=== PATIENT | female | born 1945 | race Caucasian/White ===

== ENCOUNTER 2020-05-30 14:39 | Emergency (ER) | payer MEDICARE, BC ==
[2020-05-30] MEDS ORDERED: SODIUM CHLORIDE 0.9% 1,000 ML IV STA (15:27)
[2020-05-30 15:54] LABS: Basophils # (A) 0.1 k/uL (0-0.2); Basophils % (A) 0 %; Eosinophils # (A) 0.2 k/uL (0-0.7); Eosinophils % (A) 1 %; HCT 40.1 % (34.0-46.0); HGB 13.3 gm/dL (11.4-16.0); Lymphocytes # (A) 1.2 k/uL (1.0-4.8); Lymphocytes % (A) 7 %; MCH 30.3 pg (25.0-35.0); MCHC 33.1 g/dL (31.0-37.0); MCV 91.6 fL (80.0-100.0); Mean Platelet Volume 8.5; Monocytes # (A) 1.1 k/uL (0-1.0); Monocytes % (A) 6 %; Neutrophils # (A) 14.8 k/uL (1.3-7.7); Neutrophils % (A) 83 %; Platelet Count 261 k/uL (150-450); RBC 4.37 m/uL (3.80-5.40); RDW 12.9 % (11.5-15.5); WBC 17.9 k/uL (3.8-10.6)
[2020-05-30 16:10] LABS: Albumin 3.7 g/dL (3.5-5.0); Calcium 9.2 mg/dL (8.4-10.2); Potassium 4.1 mmol/L (3.5-5.1); Total Bilirubin 0.8 mg/dL (0.2-1.3); Total Protein 6.3 g/dL (6.3-8.2)
--- NOTE | 2020-05-30 17:00 | ED ---
ENT HPI - General Chief complaint: Dental/Oral Stated complaint: Fever, body aches, Tooth pain Time Seen by Provider: 05/30/20 15:07 Source: patient Mode of arrival: ambulatory Limitations: no limitations - History of Present Illness Initial comments: Patient is a 75-year-old female presenting to the emergency room with chief complaint of fever, body aches a dental pain. Patient states approximately 5 days ago she developed right lower jaw pain that was initially diagnosed with a dental abscess about 5 days ago. Patient states she was started on Augmentin. Patient taking Augmentin for the past 3 days. Patient reports she continues to have a fever and she has been taking [id number] antipyretics with some success. Patient reports she has not developed body aches but no nausea or vomiting. She reports there is some numbness on the right side of the lip. Denies one sided facial droop or changes to her speech. Daughter is also prese nt in the room to confirm this. She denies one-sided weakness or paresthesias. States she attempted to see the dentist but will not do it until she covid testing. - Related Data Allergies Allergy/AdvReac Type Severity Reaction Status Date / Time levofloxacin [From Levaquin] Allergy Unknown Verified 05/30/20 14:51 simvastatin Allergy Swelling Verified 05/30/20 14:51 Review of Systems ROS Statement: Those systems with pertinent positive or pertinent negative responses have been documented in the HPI. ROS Other: All systems not noted in ROS Statement are negative. Past Medical History Past Medical History: GERD/Reflux, Hyperlipidemia, Hypertension History of Any Multi-Drug Resistant Organisms: None Reported Past Surgical History: Hysterectomy, Orthopedic Surgery, Tonsillectomy, Tubal Ligation Past Psychological History: No Psychological Hx Reported Smoking Status: Never smoker Past Alcohol Use History: None Reported Past Drug Use History: None Reported General Exam Limitations: no limitations General appearance: alert, in no apparent distress Head exam: Present: atraumatic, normocephalic, normal inspection Eye exam: Present: normal appearance, PERRL, EOMI Pupils: Present: normal accommodation ENT exam: Present: normal exam, mucous membranes moist, TM's normal bilaterally, normal external ear exam. Absent: normal oropharynx (No signs of a dental abscess. No tenderness on the floor the mouth. No signs of Rasta's angina. No submandibular erythema, edema or tenderness.) Neck exam: Present: normal inspection, full ROM. Absent: lymphadenopathy (No lymphadenopathy) Respiratory exam: Present: normal lung sounds bilaterally. Absent: respiratory distress, wheezes Cardiovascular Exam: Present: regular rate, normal rhythm, normal heart sounds Extremities exam: Present: normal inspection, full ROM, normal capillary refill. Absent: tenderness Back exam: Present: normal inspection, full ROM. Absent: tenderness Neurological exam: Present: alert, oriented X3, CN II-XII intact, normal gait Psychiatric exam: Present: normal affect, normal mood. Absent: depressed, agitated Skin exam: Present: warm, dry, intact, normal color. Absent: rash Course Vital Signs 05/30/20 05/30/20 14:44 17:05 Temperature 97.8 F 98.1 F Pulse Rate 87 78 Respiratory 18 16 Rate Blood Pressure 92/54 113/61 O2 Sat by Pulse 98 95 Oximetry Medical Decision Making - Medical Decision Making Patient is a 75-year-old feel presenting to the emergency department with a chief complaint of a dental infection. On physical examination, no signs of dental abscess, Rasta's angina or any cutaneous infections of the right cheek. There is some tenderness near tooth #30 and 31. Again no signs of any oral lesi ons at this time. Patient is not febrile in the emergency department. Vitals are stable. CBC reveals leukocytosis at 17.9. Lactic within normal limits. CMP is unremarkable. Blood culture pending. CT reveals no signs of and infections in the oral cavity. The CT also revealed some left cervical nodes and some right upper lobe nodularity. Patient was advised to follow with the primary care regarding this. Patient still has 7 days left of the Augmentin. Advised the patient to continue taking the medication. The swelling has decreased ever since she started the medication according to the patient. The only concern was the fever, although she is afebrile in the ED course. Strict return parameters were thoroughly discussed with patient was understanding and agreeable. Case discussed with physician. - Lab Data Result diagrams: 05/30/20 15:39 05/30/20 15:41 Lab Results 05/30/20 05/30/20 05/30/20 Range/Units 15:39 15:39 15:41 WBC 17.9 H (3.8-10.6) k/uL RBC 4.37 (3.80-5.40) m/uL Hgb 13.3 (11.4-16.0) gm/dL Hct 40.1 (34.0-46.0) % MCV 91.6 (80.0-100.0) fL MCH 30.3 (25.0-35.0) pg MCHC 33.1 (31.0-37.0) g/dL RDW 12.9 (11.5-15.5) % Plt Count 261 (150-450) k/uL Neutrophils % 83 % Lymphocytes % 7 % Monocytes % 6 % Eosinophils % 1 % Basophils % 0 % Neutrophils # 14.8 H (1.3-7.7) k/uL Lymphocytes # 1.2 (1.0-4.8) k/uL Monocytes # 1.1 H (0-1.0) k/uL Eosinophils # 0.2 (0-0.7) k/uL Basophils # 0.1 (0-0.2) k/uL Sodium 136 L (137-145) mmol/L Potassium 4.1 (3.5-5.1) mmol/L Chloride 100 (98-107) mmol/L Carbon Dioxide 26 (22-30) mmol/L Anion Gap 10 mmol/L BUN 39 H (7-17) mg/dL Creatinine 1.00 (0.52-1.04) mg/dL Est GFR (CKD-EPI)AfAm 64 (>60 ml/min/1.73 sqM) Est GFR (CKD-EPI)NonAf 56 (>60 ml/min/1.73 sqM) Glucose 147 H (74-99) mg/dL Plasma Lactic Acid Jesus 1.6 (0.7-2.0) mmol/L Calcium 9.2 (8.4-10.2) mg/dL Total Bilirubin 0.8 (0.2-1.3) mg/dL AST 130 H (14-36) U/L ALT 61 H (4-34) U/L Alkaline Phosphatase 111 (38-126) U/L Total Protein 6.3 (6.3-8.2) g/dL Albumin 3.7 (3.5-5.0) g/dL Disposition Clinical Impression: Pain, dental Disposition: HOME SELF-CARE Condition: Stable Instructions (If sedation given, give patient instructions): Toothache (ED) Additional Instructions: Take prescribed medication as directed. Continue taking Augmentin. Follow with the dentist. Return to emergency department if symptoms worsen. Is patient prescribed a controlled substance at d/c from ED?: No Referrals: Misha Anne MD [Primary Care Provider] - 1-2 days Time of Disposition: 17:42
[2020-05-30 17:06] VITALS: BP 113/61; PULSE 78; RESP 16; TEMP 98.1
--- NOTE | 2020-05-30 17:08 | CT ---
EXAMINATION TYPE: CT soft tissue neck w con DATE OF EXAM: 05/30/2020 COMPARISON: None HISTORY: 75-year-old female Right sided jaw swelling and pain. TECHNIQUE: Contiguous axial scanning of the soft tissues of the neck performed with IV Contrast, martine ent injected with 80 mL of Isovue 300. Coronal/sagittal reconstructions performed. CT DLP: 210.3 mGycm Automated exposure control for dose reduction was used. FINDINGS: Hypoplastic V4 segment right vertebral artery. Otherwise, visualized intracranial structures, orbits and globes, paranasal sinuses, and mastoid air cells appear clear. Leftward nasal septal deviation. Nasopharynx is clear. Limited assessment of the oral cavity due to extensive dental amalgam artifact. Oropharynx appears clear. Glottic and subglottic structures as well as the tracheal column appear clear. Scattered 6 mm and smaller nodularity right upper lobe. Minimal emphysematous change. Epiglottis and prevertebral soft tissues are satisfactory. Prominent 1.1 cm somewhat irregular appearing lymph node lower left cervical region, axial image 33 a nd coronal image 46. Thyroid, submandibular, and parotid glands appear satisfactory. Bones: Prominent central disc protrusion at C4-C5 minimally narrowing the spinal canal focally abutti ng and flattening the ventral cord, reference sagittal image 43. Moderate spondylotic change mid to l ower cervical spine. Prominent arachnoid granulation along the posterior occiput. IMPRESSION: 1. A BORDERLINE ENLARGED IRREGULAR APPEARING 1.1 CM LOWER LEFT CERVICAL LYMPH NODE. FINDING IS NONSPE CIFIC. CONSIDER 6-8 WEEK FOLLOW-UP TO ENSURE STABILITY. 2. 6 MM AND SMALLER RIGHT UPPER LOBE NODULARITY WITH MINIMAL EMPHYSEMATOUS CHANGE. NONEMERGENT FOLLOW -UP CONTRAST ENHANCED CT CHEST RECOMMENDED TO SURVEY THE ENTIRE LUNGS INDETERMINATE SUBSEQUENT FOLLOW -UP FOR THESE NODULES.
[2020-05-30] MEDS ORDERED: ACET/COD 300 MG/30 MG STARTER PACK 6 TAB BTL PO STA (17:43)
== END 2020-05-30 18:01 | disposition home or self-care (01) ==
LOC: EC 14:39
DX: Z20.828 Contact with and (suspected) exposure to other viral communicable diseases (principal); K08.89 Other specified disorders of teeth and supporting structures; R50.9 Fever, unspecified; R91.8 Other nonspecific abnormal finding of lung field; D72.829 Elevated white blood cell count, unspecified; Z88.1 Allergy status to other antibiotic agents; Z88.8 Allergy status to other drugs, medicaments and biological substances
CPT/HCPCS: 99284; 96360; 36415; 80053; 83605; 85025; 87040; 70491; U0003; Q9967; 99285

== ENCOUNTER → 2020-06-25 | Outpatient (CLI) | payer MEDICARE, BC ==
[2020-06-25 13:40] LABS: African American GFR (CKD) >90 (>60 ml/min/1.73 sqM); Blood Urea Nitrogen 14 mg/dL (7-17); Non-African American GFR(CKD) 83 (>60 ml/min/1.73 sqM)
--- NOTE | 2020-06-25 18:05 | CT ---
EXAMINATION TYPE: CT ChestAbdPelvis w con DATE OF EXAM: 06/25/2020 COMPARISON: CT neck 05/30/2020. HISTORY: 75-year-old female lung nodule/elevated liver enzymes. TECHNIQUE: Contiguous axial scanning of the chest, abdomen, and pelvis performed with IV Contrast, pa tient injected with 100 mL of Isovue 300. Delayed images through the kidneys were obtained. Coronal/s agittal reconstructions performed. CT DLP: 530.2 mGycm Automated exposure control for dose reduction was used. FINDINGS: CHEST: The lower left cervical lymph node at the thoracic inlet currently measures 7 mm short axis versus 8 mm, previously. Heart normal size without pericardial effusion. Aorta normal caliber airway conventional branching anatomy. No thoracic lymphadenopathy by CT size criteria. Mild biapical pleural-parenchymal scarring. There are a number of bilateral 8 mm smaller pulmonary nodules. Many of the nodules are punctate with a somewhat centrilobular or tree-in-bud configuration. This favors a postinflammatory rather than ne oplastic etiology but follow-up is recommended. No reji consolidation or pleural effusion. ABDOMEN: Some focal fat along the anterior falciform ligament. No biliary ductal dilatation. Portal venous sys tem is patent. Gallbladder, adrenal glands, left kidney, spleen, and pancreas appear within normal limits. Extra ivon al pelvis on the right. No dilated small bowel, free fluid, or free air. No mesenteric or retroperitoneal lymphadenopathy. Mild overall stool on the right hemicolon. Normal appendix. No pericolonic inflammatory change. PELVIS: Bladder partially distended. Uterus surgically absent. Neither ovary is visualized. No abnormal fluid collection the pelvis or pelvic lymphadenopathy. Bones: Advanced degenerative disc disease throughout the lumbar spine. Hypertrophic facet arthropathy is als o present with grade 1 anterolisthesis of L5-S1. No osseous destructive process. IMPRESSION: 1. THE LOW LEFT CERVICAL LYMPH NODE AT THE THORACIC INLET SEEN ON RECENT CT SOFT TISSUE NECK 0 CURRENTLY MEASURES 7 MM VERSUS 8 MM, PREVIOUSLY. IT DOES NOT HAVE A PARTICULARLY SUSPICIOUS APPEARA NCE ON THE CURRENT EXAM. THE AREA CAN BE MONITORED CLINICALLY FOR THE DEVELOPMENT OF ANY PALPABLE ABN ORMALITY. 2. NUMEROUS BILATERAL PULMONARY NODULES MEASURING UP TO 8 MM; MANY OF THE NODULES ARE PUNCTATE WITH A TREE-IN-BUD CONFIGURATION FAVORING AN INFLAMMATORY ETIOLOGY. CORRELATE FOR POSSIBLE BRONCHIOLITIS, C HRONIC ASTHMA, OR ATYPICAL INFECTIONS. 6 MONTH FOLLOW-UP CT RECOMMENDED TO REASSESS. 3. ADVANCED DEGENERATIVE CHANGES LUMBAR SPINE.
== END | disposition home or self-care (01) ==
LOC: RADCTMAIN 12:58
PROVIDERS: ATTEND Internal Medicine
DX: R91.8 Other nonspecific abnormal finding of lung field (principal); R74.8 Abnormal levels of other serum enzymes; N30.00 Acute cystitis without hematuria
CPT/HCPCS: 82565; 84520; 71260; 74177; 36415; Q9967

== ENCOUNTER → 2024-03-13 | Outpatient (CLI) | payer MEDICARE, BC ==
--- NOTE | 2024-03-14 06:51 | CA ---
Transthoracic Echo Report Name: Silvia Jones Age: 79 Gender: F : 1945 Exam Date: 03/13/2024 14:25 Exam Location: [facility] Ht (in): 61 Wt (lb): 118 Ordering Physician: Richmond López MD Attending/Referring Phys: Nita Pathak PAC [employer] Breanna Galeano RDCS Procedure CPT: Indications: I35.0 NONRHEUMATIC AORTIC STENOSIS Cardiac Hx: Technical Quality: Fair Contrast 1: Total Dose (mL): Contrast 2: Total Dose (mL): MEASUREMENTS (Male / Female) Normal Values 2D ECHO LV Diastolic Diameter PLAX 3.2 cm 4.2 - 5.9 / 3.9 - 5.3 cm LV Systolic Diameter PLAX 1.5 cm IVS Diastolic Thickness 1.6 cm 0.6 - 1.0 / 0.6 - 0.9 cm LVPW Diastolic Thickness 1.2 cm 0.6 - 1.0 / 0.6 - 0.9 cm LV Relative Wall Thickness 0.8 RV Internal Dim ED PLAX 2.4 cm LA Volume 31.9 cm??? 18 - 58 / 22 - 52 cm??? LA Volume Index 21.0 cm???/m??? 16 - 28 cm???/m??? M-MODE Aortic Root Diameter MM 2.9 cm LA Systolic Diameter MM 3.6 cm LA Ao Ratio MM 1.3 AV Cusp Separation MM 1.4 cm DOPPLER AV Peak Velocity 112.6 cm/s AV Peak Gradient 5.1 mmHg AV Mean Velocity 87.0 cm/s AV Mean Gradient 3.2 mmHg AV Velocity Time Integral 26.2 cm AI Peak Velocity 299.9 cm/s AI Peak Gradient 36.0 mmHg AI Pressure Half Time 594.1 ms LVOT Peak Velocity 87.5 cm/s LVOT Peak Gradient 3.1 mmHg LVOT Velocity Time Integral 21.9 cm MV Area PHT 2.6 cm??? Mitral E Point Velocity 50.6 cm/s Mitral A Point Velocity 78.8 cm/s Mitral E to A Ratio 0.6 MV Deceleration Time 290.6 ms MV E' Velocity 6.0 cm/s Mitral E to MV E' Ratio 8.5 TR Peak Velocity 210.5 cm/s TR Peak Gradient 17.7 mmHg Right Ventricular Systolic Press 22.1 mmHg FINDINGS Left Ventricle Moderately increased left ventricular wall thickness. Left ventricular cavity size normal. Normal left ventricular systolic function with no obvious regional wall motion abnormalities. Left ventricular ejection fraction is estimated at 55-60 %. Grade 1 diastolic dysfunction. Right Ventricle Normal right ventricular size and function. Right ventricular systolic pressure within normal limits. Right Atrium Normal right atrial size. Left Atrium Normal left atrial size. Mitral Valve Structurally normal mitral valve. Mild mitral regurgitation. Aortic Valve Trileaflet aortic valve. No aortic stenosis. Aortic valve sclerosis. Mild aortic regurgitation. Tricuspid Valve Structurally normal tricuspid valve. Mild tricuspid regurgitation. Pulmonic Valve Structurally normal pulmonic valve. Trace pulmonic regurgitation. Pericardium No pericardial effusion. Aorta Normal size aortic root and proximal ascending aorta. CONCLUSIONS Normal LV systolic function Previewed by: Dr. Juan Fitzpatrick MD (Electronically Signed) Final Date: 14 Mar 2024 06:50
== END | disposition home or self-care (01) ==
LOC: RADECHMAIN 13:48
PROVIDERS: ATTEND Internal Medicine Geriatric Medicine
DX: I35.0 Nonrheumatic aortic (valve) stenosis (principal)
CPT/HCPCS: 93306